=== PATIENT | male | born 1990 | race African-American/Black ===

== ENCOUNTER 2018-08-11 03:28 | Emergency (ER) | payer OTHER ==
[~2018-08-11] VITALS: Ht 185.4 cm; Wt 93.0 kg
[2018-08-11 03:28] VITALS: BP 137/82
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
[2018-08-11 06:00] VITALS: BP 128/81
== END 2018-08-11 06:00 | disposition home or self-care (01) ==
LOC: MED 03:28
DX: S16.1XXA Strain of muscle, fascia and tendon at neck level, initial encounter (principal); V49.69XA Unspecified car occupant injured in collision with other motor vehicles in traffic accident, initial encounter; Y93.89 Activity, other specified; Y92.89 Other specified places as the place of occurrence of the external cause; Y99.8 Other external cause status
CPT/HCPCS: 70450; 71045; 72125; 99284; Q0092